=== PATIENT | male | born 1990 ===

== ENCOUNTER 2025-05-30 13:50 | Emergency (ER) | payer SELFPAY ==
[~2025-05-30] VITALS: Ht 175.3 cm; Wt 79.1 kg
[2025-05-30 13:52] VITALS: BP 133/83; PULSE 107; RESP 18; TEMP 98.1; O2SAT 99
--- NOTE | 2025-05-30 14:28 | Physician Documentation ---
HPI ~ General Chief Complaint: Medication Request Stated Complaint: MED REFILL History of Present Illness HPI Comments Patient is a 48-year-old male that presents to the emergency department with a guardian for refill of his medications. Prescriptions will be refilled her in the emergency department today. Patient has no other concerns at this time. Blood pressure and vitals were monitored appropriate at this time. Medication Reconciliation Allergies: Coded Allergies: clozapine (Verified Allergy, Unknown, 05/30/25) Review of Systems ROS As stated above in the HPI, otherwise all systems are reviewed and negative. Physical Exam Physical Exam Vital Signs: Temperature: 98.1, Source: Temporal, Heart Rate: 107, Respiratory Rate: 18, BP: 133/83, Pulse Oximetry: 99, Weight: 79.090 Oxygen Flow Rate: 0 Physical Exam VITALS: Reviewed and as above. GENERAL: Alert, no apparent distress. HEENT: Normocephalic, atraumatic, PERRL, EOMI, dry mucosa, no erythema RESPIRATORY: Lungs clear, normal breath sounds, no respiratory distress. CHEST: No accessory muscle use, no retractions CV: Regular rate, rhythm, no edema, no murmur, No: JVD GI: Soft, non-tender, bowels sounds present, no rebound, guarding, or rigidity BACK: No CVA tenderness, or swelling MUSCULOSKELETAL No deformities, no edema SKIN: Warm and dry, no rash NEURO: Oriented x4, No motor or sensory deficit PSYCH: Normal mood and affect, no agitation Progress Results/Orders Results/Orders Vital Signs 05/30/25 13:52 Temp 98.1 Pulse 107 Resp 18 B/P (MAP) 133/83 Pulse Ox 99 O2 Flow Rate 0 Medical Decision Making Findings Patient is a 48-year-old male that presents to the emergency department with a guardian for refill of his medications. Prescriptions will be refilled her in the emergency department today. Patient has no other concerns at this time. Blood pressure and vitals were monitored and appropriate at this time. Differential Dx:Considerations: Include: Adverse circumstances, Economic, Psychosocial, Medical services unavail., Medication refill, Medication non- compliance, Other Departure Disposition: HOME / SELF CARE / HOMELESS Impression: Primary Impression: General medical exam Additional Impression: Medication refill Discharge Instructions: Medicine Refill at the Emergency Department, Medical Screening Exam Additional Instructions: Patient is a 48-year-old male that presents to the emergency department with a guardian for refill of his medications. Prescription for metoprolol will be refilled her in the emergency department today. Patient has no other concerns at this time. Blood pressure and vitals were monitored and appropriate at this time. Referrals: NO PRIMARY CARE PROVIDER (PCP) Prescriptions Benztropine Mesylate* (Cogentin*) 1 Mg Tablet 2 MG PO DAILY for 30 Days, #30 TAB Prov: AURY,DIANA A [facility] 05/30/25 Cholecalciferol (Vitamin D3) (Vitamin D3) 25 Mcg (1000 Unit) Capsule 1 CAP PO DAILY for 30 Days, #30 CAP 0 Refills Prov: ARUYDIANA SMITH [facility] 05/30/25 Olanzapine (Olanzapine) 10 Mg Tab.rapdis 1 TAB PO HS for 30 Days, #30 TAB 0 Refills Prov: AURYDIANA SMITH [facility] 05/30/25 Levothyroxine Sodium (Levothyroxine) 50 Mcg Capsule 1 CAP PO DAILY for 30 Days, #30 CAP 0 Refills Prov: DIANA JEFFERS [facility] 05/30/25 Paliperidone Palmitate (Invega Sustenna) 234 Mg/1.5 Ml Syringe 1 SYR IM Q30D for 30 Days, #1.5 ML 0 Refills Prov: DIANA JEFFERS [facility] 05/30/25 Fluphenazine HCl (Fluphenazine HCl) 10 Mg Tablet 1.5 TAB PO Q12H for psychosis for 30 Days, #30 TAB 0 Refills Prov: DIANA JEFFERS [facility] 05/30/25 Docusate Sodium (Docusate Sodium) 100 Mg Tablet 200 MG PO QAM for 60 Days, #120 TAB Prov: DIANA JEFFERS [facility] 05/30/25 Divalproex Sodium (Depakote) 250 Mg Tablet.dr 7 TAB PO QHS for 30 Days, #210 TAB 0 Refills Prov: DIANA JEFFERS [facility] 05/30/25 Chlorpromazine HCl (Chlorpromazine HCl) 100 Mg Tablet 1 TAB PO TID for 30 Days, #90 TAB 0 Refills Prov: DIANA JEFFERS [facility] 05/30/25 Amlodipine* (Norvasc*) 2.5 Mg Tablet 1 TAB PO DAILY for 60 Days, #30 TAB Prov: DIANA JEFFERS 05/30/25 Comments Home medications reviewed with guardian. Some medications are very high levels. Your previously prescribed medications discuss this with patient and the guardian from the center. 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 Education Educated: Patient Educated regarding: diagnosis, treatment, need for follow up Signature Scribe Signature: A Attestation: Scribed for Emergency,Department by JAMA Fuentes . 05/30/25 14:51 DIANA JEFFERS May 30, 2025 14:28
[2025-05-30] MEDS ORDERED: DIVA-159 PO (14:38)
[2025-05-30] MEDS ORDERED: DOCU100T2 PO (14:38)
[2025-05-30] MEDS ORDERED: CHLO100T36 PO (14:38)
[2025-05-30] MEDS ORDERED: AMLO2.5T2 PO (14:38)
[2025-05-30] MEDS ORDERED: FLUP10TA13 PO (14:43)
[2025-05-30] MEDS ORDERED: PALI234D IM (14:43)
[2025-05-30] MEDS ORDERED: LEVO50CA5 PO (14:44)
[2025-05-30] MEDS ORDERED: OLAN10TA21 PO (14:47)
[2025-05-30] MEDS ORDERED: CHOL100046 PO (14:47)
[2025-05-30] MEDS ORDERED: BENZ1TAB97 PO (14:47)
== END 2025-05-30 14:58 | disposition home or self-care (01) ==
LOC: ER 13:51
DX: Z00.00 Encounter for general adult medical examination without abnormal findings (principal); Z76.0 Encounter for issue of repeat prescription
CPT/HCPCS: 99281